=== PATIENT | female | born 1970 | race Two or more races ===

== ENCOUNTER 2017-01-06 06:13 | Day surgery (SDC) | payer BC ==
[~2017-01-06] VITALS: Ht 152.4 cm; Wt 71.2 kg
[2017-01-06] VITALS (10 sets, daily range): BP systolic 101–141; BP diastolic 45–83; PULSE 64–82; RESP 12–16; Ht 152.4 cm; Wt 71.2 kg
[2017-01-06] MEDS ORDERED: VASOPRESSIN 20 UNITS INJ ONE (09:13)
[2017-01-06] MEDS ORDERED: MIDAZOLAM 1 MG/ML 2 ML INJ ONE (09:37)
[2017-01-06] MEDS ORDERED: LIDOCAINE 2% (SDV) 5 ML INJ ONE (09:37)
[2017-01-06] MEDS ORDERED: PROPOFOL 20 ML ONE (09:37)
[2017-01-06] MEDS ORDERED: ONDANSETRON 4 MG INJ ONE (09:44)
[2017-01-06] MEDS ORDERED: METOCLOPRAMIDE 10 MG INJ ONE (09:44)
[2017-01-06] MEDS ORDERED: FENTAnyl 50 MCG/ML VIAL ONE (09:44)
[2017-01-06] MEDS ORDERED: CEFAZOLIN 1 GM INJ ONE (09:44)
[2017-01-06] MEDS ORDERED: DEXAMETHASONE 4 MG/ML 1 ML INJ ONE (09:44)
[2017-01-06] MEDS ORDERED: EPHEDrine SULFATE 50 MG/5 ML SYG ONE (09:55)
[2017-01-06] MEDS ORDERED: OXYCODONE/ACETAMINOPHEN (5/325) TAB PO PRN (10:00)
[2017-01-06] MEDS ORDERED: HYDROmorphONE (0.2 MG/ML) 10ML SYG IV PRN (10:00)
[2017-01-06] MEDS ORDERED: MEPERIDINE 25 MG INJ IV PRN (10:00)
[2017-01-06] MEDS ORDERED: ONDANSETRON 4 MG INJ IV PRN (10:00)
[2017-01-06] MEDS ORDERED: DIPHENHYDRAMINE 50 MG INJ IV PRN (10:00)
[2017-01-06] MEDS ORDERED: PROCHLORPERAZINE 10 MG INJ IV PRN (10:00)
[2017-01-06] MEDS ORDERED: FENTAnyl 50 MCG/ML VIAL IV PRN (10:00)
--- NOTE | 2017-01-07 05:30 | PREOPHP ---
DATE OF ADMISSION: 01/06/2017 DATE OF ADMISSION: 01/06/2017. HISTORY OF PRESENT ILLNESS: This is a 46-year-old lady, 2, para 2. Her last normal menstru al period was a few days prior to admission. She was admitted for D and C, hysteroscopy, possible s uction curettage. This patient was attempted to have endometrial biopsy, but the cervix was stenoti c. The ultrasound showed endometrial thickening and submucosal fibroid, so she was admitted for D a nd C, hysteroscopy, possible suction curettage. The procedure was explained to the patient and she understood everything totally. The risks, benefits and alternatives were discussed with her as well . PAST PERSONAL HISTORY: No history of TB, asthma. NO ALLERGIES. The patient has a history of cance r. She had menarche at the age of 10, every 28 days interval, 3 to 4 days duration and moderate in amount. She bleeds heavy with her period. She is 2, para 1 with 2 normal deliveries. PAST SURGICAL HISTORY: She had tubal ligation. REVIEW OF SYSTEMS: CARDIOVASCULAR: No chest pains. RESPIRATORY: No cough. GASTROINTESTINAL: No diarrhea, no vomiting. GENITOURINARY: No dysuria. PHYSICAL EXAMINATION: GENERAL: Reveals a conscious coherent lady and in no acute distress. VITAL SIGNS: Her blood pressure 120/80, pulse rate 80 per minute, respirations 16 per minute. BREASTS, HEART AND LUNGS: Within normal limits. ABDOMEN: Soft. No organomegaly. PELVIC: Revealed the cervix to be firm, uterus of normal size and adnexa were negative for masses. RECTAL: Confirmed the pelvic findings. EXTREMITIES: No pedal edema. ADMITTING DIAGNOSES: 1. Submucosal fibroid. 2. Also endometrial thickening. 3. A history of menorrhagia. PLAN: The patient was planned to have D and C, hysteroscopy and suction curettage. Dictated By: GURMEET EDWARDS/SARAN Conf#: [id number] DID#: [id number]
--- NOTE | 2017-01-07 06:05 | OPR ---
DATE OF OPERATION: 01/06/2017 PREOPERATIVE DIAGNOSES: Menorrhagia, endometrial thickening, submucous fibroid. POSTOPERATIVE DIAGNOSES: Menorrhagia, endometrial thickening, submucous fibroid plus pending pathol ogy report. SURGEON: Dr. Gavin. BILINGUAL RECEPTIONIST: can technician. ANESTHESIA: General. OPERATION PERFORMED: D and C, hysteroscopy and suction curettage. OPERATIVE TECHNIQUE: Under general anesthesia, the patient was prepped and draped in the usual [facility] ion for vaginal surgery. Pelvic exam under anesthesia revealed the cervix to be firm, uterus about 12 to 14 weeks size, and adnexa were negative for masses. Then, the heavy weight vaginal retractor was put in place and the anterior lip of the cervix was grasped with an Allis clamp. Endocervical d ilatation up to Hegar 7 was proceeded. Uterus was sounded to about 3-1/2 inches. Then the hysteros cope was inserted inside the uterine cavity and connected with the light source. The uterus was dis tended with normal saline. There were no polyps. There was a submucosal fibroid noted on the anter ior fundal portion of the uterus 2 x 2 cm was noted. The endocervical curettage was performed and a small amount of tissue was obtained. Endometrial curettage was performed and a good amount of tiss ue was obtained. Suction tip size 7 was inserted inside the uterine cavity and suction curettage wa s done. A good amount of tissue was obtained. The uterus was intact during and after the procedure . The patient tolerated the procedure well. Estimated blood loss was minimal. Vital signs were st able during and after the procedure. Dictated By: GURMEET EDWARDS/SARAN Conf#: [id number] DID#: [id number]
== END 2017-01-06 11:10 | disposition home or self-care (01) ==
LOC: SDS 06:13
PROVIDERS: ATTEND Obstetrics & Gynecology
DX: N92.0 Excessive and frequent menstruation with regular cycle (principal); D25.0 Submucous leiomyoma of uterus
CPT/HCPCS: 58558; 84702; 86850; 86870; 86880; 86900; 86901; 88305; J0690; J1100; J2250; J2405; J2765; J3010